=== PATIENT | female | born 1950 | race Asian ===

== ENCOUNTER 2018-09-23 15:32 | Observation (INO) | payer BC, MEDICARE ==
[~2018-09-23] VITALS: Ht 147.3 cm; Wt 55.4 kg
[2018-09-23] MEDS ORDERED: ASPIRIN 81 MG TABLET CHEW PO ONE (16:00)
[2018-09-23 16:26] LABS: BASOPHILS # (AUTO) 0.03 x10^3/uL (0-0.1); BASOPHILS % (AUTO) 1 % (0-1); EOSINOPHILS # (AUTO) 0.11 x10^3/uL (0-0.4); EOSINOPHILS % (AUTO) 3 % (1-7); LYMPHOCYTES # (AUTO) 1.52 x10^3/uL (1-3.4); LYMPHOCYTES % (AUTO) 35 % (22-44); MD NO; MEAN CORPUSCULAR HEMOGLOBIN 28.7 pg (27.0-34.8); MEAN CORPUSCULAR HGB CONC 33.2 g/dL (32.4-35.8); MEAN CORPUSCULAR VOLUME 86.6 fL (80-100); MEAN PLATELET VOLUME 7.9 fL (7.4-10.4); MONOCYTES # (AUTO) 0.37 x10^3/uL (0.2-0.8); MONOCYTES % (AUTO) 9 % (2-9); NEUTROPHILS # (AUTO) 2.35 x10^3/uL (1.8-6.8); NEUTROPHILS % (AUTO) 54 % (42-75); PLATELET COUNT 230 x10^3/uL (130-400); RED BLOOD COUNT 4.54 x10^6/uL (3.82-5.3)
[2018-09-23 16:30] LABS: ALBUMIN 3.7 g/dL (3.4-5.0); ANION GAP 7 mmol/L (5-15); CALCIUM 8.9 mg/dL (8.5-10.1); CHLORIDE 109 mmol/L (98-107); CREATININE 0.87 mg/dL (0.55-1.02)
[2018-09-23 16:35] LABS: TROPONIN I < 0.015 ng/mL (0.000-0.045)
--- NOTE | 2018-09-23 17:57 | NUR ---
pt presents with chest and left arm pain since friday night. ekg done in triage. pt placed in room and placed on bp, cardiac, and cotn. pulse oximeter. assessment completed. Daughters at bedside. pt a&ox4.
[2018-09-23] MEDS ORDERED: OMEP-110 PO (18:03)
[2018-09-23] MEDS ORDERED: ASPIRIN 81 MG TABLET CHEW ONE (18:04)
[2018-09-23] MEDS ORDERED: ALEN70TA6 PO (18:09)
[2018-09-23] MEDS ORDERED: ACETAMINOPHEN 325 MG TABLET PO PRN (19:00)
--- NOTE | 2018-09-23 19:00 | NUR ---
report given to lucas dinh
[2018-09-23] MEDS ORDERED: NITROGLYCERIN OINT 2%, 1GM TP ONE (19:30)
[2018-09-23 19:38] LABS: CHOL/HDL RATIO 2.2; LDL/HDL RATIO 0.9 (0.5-3.0)
--- NOTE | 2018-09-23 20:01 | NUR ---
PT VSS AND UPDATED IN EMR. FAMILY AT BS. PT RESTING COMFORTABLY IN [facility] AT THIS TIME WITH CALL LIGHT WITHIN REACH. PT PROVIDED EXTRA WARM BLANKET PER REQUEST.
--- NOTE | 2018-09-23 20:21 | NUR ---
ATTEMPTED TO CALL REPORT OF PT. PT NURSE NOT ANSWERING ON FLOOR. WILL TRY AGAIN.
--- NOTE | 2018-09-23 20:43 | NUR ---
REPORT OF PT GIVEN TO MICKIE SNOW. ALL QUESTIONS ANSWERED AT THIS TIME.
[2018-09-23 23:07] VITALS: BP 159/80
[2018-09-24 01:33] VITALS: BP 159/80
[2018-09-24] MEDS ORDERED: ASPIRIN 81 MG TABLET EC PO SCH (06:00)
[2018-09-24 06:12] LABS: BASOPHILS # (AUTO) 0.02 x10^3/uL (0-0.1); BASOPHILS % (AUTO) 0 % (0-1); EOSINOPHILS # (AUTO) 0.19 x10^3/uL (0-0.4); EOSINOPHILS % (AUTO) 4 % (1-7); LYMPHOCYTES # (AUTO) 1.25 x10^3/uL (1-3.4); LYMPHOCYTES % (AUTO) 29 % (22-44); MD NO; MEAN CORPUSCULAR HEMOGLOBIN 28.9 pg (27.0-34.8); MEAN CORPUSCULAR VOLUME 87.6 fL (80-100); MONOCYTES # (AUTO) 0.36 x10^3/uL (0.2-0.8); MONOCYTES % (AUTO) 8 % (2-9); NEUTROPHILS # (AUTO) 2.46 x10^3/uL (1.8-6.8); NEUTROPHILS % (AUTO) 58 % (42-75); PLATELET COUNT 211 x10^3/uL (130-400); RED BLOOD COUNT 4.48 x10^6/uL (3.82-5.3); RED CELL DISTRIBUTION WIDTH 13.9 % (9.6-15.2)
[2018-09-24 06:18] LABS: ANION GAP 5 mmol/L (5-15); CALCIUM 8.5 mg/dL (8.5-10.1); CHLORIDE 112 mmol/L (98-107)
[2018-09-24 06:27] LABS: CREATININE 0.65 mg/dL (0.55-1.02); TROPONIN I < 0.015 ng/mL (0.000-0.045)
[2018-09-24 07:45] VITALS: BP 106/71
[2018-09-24] MEDS ORDERED: REGADENOSON 0.4 MG/5 ML SYRINGE ONE (11:24)
== END 2018-09-24 16:51 | disposition home or self-care (01) ==
LOC: ED 19:10 → EDIP 19:20 → INTOOBSV 19:20 → 5SO 20:55 → DCLOUNGE 09-24 16:38
PROVIDERS: ADMIT Internal Medicine; ATTEND Internal Medicine
DX: R07.9 Chest pain, unspecified (principal); K21.9 Gastro-esophageal reflux disease without esophagitis; Z79.82 Long term (current) use of aspirin; Z82.49 Family history of ischemic heart disease and other diseases of the circulatory system
CPT/HCPCS: 36415; 71046; 78452; 80048; 80061; 82040; 83735; 83880; 84443; 84484; 85025; 85379; 93005; 93017; 93306; 99284; A9502; C9898; G0378; J2785

== ENCOUNTER 2019-12-14 11:05 | Outpatient (CLI) | payer BC, MEDICARE ==
[~2019-12-14 11:05] MED LIST: ALEN70TA6 PO; OMEP-110 PO
== END 2019-12-14 23:59 | disposition home or self-care (01) ==
LOC: CFH 11:05
PROVIDERS: ATTEND Family Medicine
DX: Z12.31 Encounter for screening mammogram for malignant neoplasm of breast (principal); N95.8 Other specified menopausal and perimenopausal disorders; M81.0 Age-related osteoporosis without current pathological fracture
CPT/HCPCS: 77063; 77067; 77080